=== PATIENT | male | born 1955 | race Caucasian/White ===

== ENCOUNTER 2018-02-09 14:51 | Emergency (ER) | payer OTHER ==
[~2018-02-09] VITALS: Ht 182.9 cm; Wt 74.8 kg
[2018-02-09 16:02] LABS: Urine Bacteria FEW /hpf (None Seen); Urine Blood 2+ /uL (Negative); Urine Mucus FEW (None Seen); Urine Specific Gravity 1.026 (1.001-1.035); Urine WBC 172 /hpf (0 - 3)
[2018-02-09 16:36] VITALS: BP 114/61
== END 2018-02-09 16:40 | disposition home or self-care (01) ==
LOC: ER 14:57
DX: N39.0 Urinary tract infection, site not specified (principal); E11.9 Type 2 diabetes mellitus without complications; I10 Essential (primary) hypertension; Z89.612 Acquired absence of left leg above knee
CPT/HCPCS: 51702; 81001

== ENCOUNTER 2019-01-14 10:42 | Emergency (ER) | payer OTHER ==
[~2019-01-14] VITALS: Ht 182.9 cm; Wt 74.4 kg
[2019-01-14 12:21] VITALS: BP 169/91
[2019-01-14] MEDS ORDERED: cefTRIAXone SOD 1,000 MG VL ONE (12:36)
== END 2019-01-14 12:47 | disposition home or self-care (01) ==
LOC: ER 10:42 → EDBD 10:42 → ER 12:47
DX: S76.012A Strain of muscle, fascia and tendon of left hip, initial encounter (principal); S50.312A Abrasion of left elbow, initial encounter; E11.22 Type 2 diabetes mellitus with diabetic chronic kidney disease; I12.9 Hypertensive chronic kidney disease with stage 1 through stage 4 chronic kidney disease, or unspecified chronic kidney disease; N18.9 Chronic kidney disease, unspecified; V09.20XA Pedestrian injured in traffic accident involving unspecified motor vehicles, initial encounter; Y93.89 Activity, other specified; Y92.488 Other paved roadways as the place of occurrence of the external cause; Y99.8 Other external cause status
CPT/HCPCS: 73080; 73502; J0696